=== PATIENT | male | born 1955 | race Native Hawaiian/Other Pacific Islander ===

== ENCOUNTER 2019-04-08 10:26 | Outpatient (CLI) | payer BC | END 2019-04-08 19:48 | disposition home or self-care (01) | LOC: US 10:26 | DX: I82.493 Acute embolism and thrombosis of other specified deep vein of lower extremity, bilateral (principal) ==

== ENCOUNTER 2023-04-30 13:00 | Outpatient (CLI) | payer OTHER, MEDICARE | END 2023-04-30 19:16 | disposition home or self-care (01) | LOC: RAD 13:00 | PROVIDERS: ATTEND Nurse Practitioner Family | DX: R05.9 Cough, unspecified (principal) ==